=== PATIENT | male | born 1990 | race Two or more races ===

== ENCOUNTER 2022-05-16 22:32 | Observation (INO) | payer SELFPAY ==
[2022-05-16] MEDS ORDERED: Sodium Chloride 0.9% 1,000 ML IV ONE ×2 (23:09→23:10)
[2022-05-16 23:30] LABS: POTASSIUM,K 4.5 mmol/L (3.5-5.1)
[2022-05-17] MEDS ORDERED: Sodium Chloride 0.9% 1,000 ML IV SCH (04:15)
[2022-05-17] MEDS ORDERED: Acetaminophen 325 MG Tab PO PRN (07:47)
[2022-05-17] MEDS ORDERED: Sodium Chloride 0.9% 2.5 ML Syringe FLUSH PRN (07:47)
[2022-05-17] MEDS ORDERED: Ondansetron 4 MG/2 ML SDV IVPUSH PRN (07:47)
[2022-05-17] MEDS ORDERED: Sodium Chloride 0.9% 10 ML Syringe FLUSH PRN (07:47)
[2022-05-17] MEDS ORDERED: Pantoprazole 40 MG in Sodium Chloride 0.9% 10 ML IVPUSH ONE (08:39)
[2022-05-17 09:12] LABS: CARBON DIOXIDE,CO2 26.5 mmol/L (21.0-32.0); POTASSIUM,K 4.2 mmol/L (3.5-5.1)
== END 2022-05-17 15:30 | disposition home or self-care (01) ==
LOC: MW.ED 22:32 → EDBD 22:32 → MW.MS 05-17 01:58
PROVIDERS: ADMIT Internal Medicine; ATTEND Internal Medicine
DX: T67.5XXA Heat exhaustion, unspecified, initial encounter (principal); N17.9 Acute kidney failure, unspecified; R11.2 Nausea with vomiting, unspecified; F17.210 Nicotine dependence, cigarettes, uncomplicated; Z20.822 Contact with and (suspected) exposure to COVID-19
CPT/HCPCS: 36415; 80053; 82550; 83605; 83735; 84484; 85025; 85610; 85730; 87635; 93005; 96360; 96374; 99285; C9113; G0378; J3490; J7030; 93010; 96361; 99234; 99284; U0002